=== PATIENT | female | born 1970 | race Caucasian/White ===

== ENCOUNTER 2016-09-08 00:24 | Emergency (ER) | payer OTHER, MEDICAID ==
[~2016-09-08] VITALS: Ht 165.1 cm; Wt 83.9 kg
[~2016-09-08 00:24] MED LIST: LEVO137T18 PO; LORA-258 PO; TRAM50TA92 PO; VENL150C2 PO; ZOLP12.52 PO
[2016-09-08 00:29] VITALS: BP 139/88; PULSE 58; RESP 18; TEMP 97.9; O2SAT 100
--- NOTE | 2016-09-08 00:51 | NUR ---
Patient to ER bed 1 to gown for evaluation. Side rails up. Report given to NATAN REYNA.
--- NOTE | 2016-09-08 01:01 | NUR ---
Patient to ER C/O severe 03/19 pelvic pain started yesterday morning, burning like non-radiating. Patient states that she had neck surgery Thursday and is taking pain meds but denies constipation. C/O nausea and vomiting for 1 day, "bitter, yello, bile like" AAOx4, unlabored breathing, no active vomiting at this time.
--- NOTE | 2016-09-08 01:16 | NUR ---
ER MD Gonzales at [facility] for evaluation
--- NOTE | 2016-09-08 01:20 | NUR ---
# 20 gauge angiocath placed to left ac. Use of asceptic technique. Opsite placed over site. Blood return noted. Flushed with 10 cc of normal saline. No evidence of infiltration noted. Patient tolerated well.
[2016-09-08 01:25] LABS: BASOPHILS # (AUTO) 0.3 K/uL (0.0-0.2); BASOPHILS % (AUTO) 2.5 % (0.0-2.0); EOSINOPHILS # (AUTO) 0.1 K/uL (0.0-0.4); EOSINOPHILS % (AUTO) 0.7 % (0.0-4.0); HEMATOCRIT 39.7 % (36-48); HEMOGLOBIN 13.3 g/dL (12.0-16.0); LYMPHOCYTES # (AUTO) 2.8 K/uL (1.0-5.5); LYMPHOCYTES % (AUTO) 20.8 % (20.5-51.5); MEAN CORPUSCULAR HEMOGLOBIN 29 pg (27-31); MEAN CORPUSCULAR HGB CONC 34 % (32-36); MEAN CORPUSCULAR VOLUME 87 fL (79.0-98.0); MONOCYTES % (AUTO) 7.4 % (1.7-9.3); NEUTROPHILS # (AUTO) 9.4 K/uL (1.8-7.7); NEUTROPHILS % (AUTO) 68.6 % (40.0-70.0); PLATELET COUNT (AUTO) 271 K/uL (130-430); RED BLOOD CELL COUNT(AUTO) 4.55 MIL/uL (4.2-6.2); RED CELL DISTRIBUTION WIDTH 13.4 % (9.0-15.0); WHITE BLOOD COUNT (AUTO) 13.6 K/uL (4.8-10.8)
[2016-09-08 01:36] LABS: CALCIUM 9.2 mg/dL (8.4-11.0); CREATININE 0.94 mg/dL (0.55-1.30); POTASSIUM 3.1 mmol/L (3.5-5.1)
[2016-09-08 01:41] LABS: ALBUMIN 3.7 g/dL (3.4-4.8); TOTAL BILIRUBIN 0.4 mg/dL (0.0-1.0); TOTAL PROTEIN, SERUM 7.7 g/dL (6.4-8.3)
[2016-09-08] MEDS ORDERED: LIDOCAINE VISCOUS 2%, 15 ML UDC MM ONE (01:45)
[2016-09-08] MEDS ORDERED: BELLADONNA ALKALOIDS/PHENOBARB 5 ML UDC PO ONE (01:45)
[2016-09-08] MEDS ORDERED: MAG-AL HYDROX/SIMETH 30 ML UDC PO ONE (01:45)
[2016-09-08] MEDS ORDERED: ONDANSETRON HCL 4 MG/2 ML VIAL IVP ONE (01:45)
--- NOTE | 2016-09-08 02:43 | NUR ---
MEDICATION GIVEN PER ORDERS TOLERATED WELL.
[2016-09-08] MEDS ORDERED: MORPHINE 4 MG/ML INJ. SYRINGE IVP ONE ×2 (02:45→03:30)
[2016-09-08] MEDS ORDERED: NACL 0.9% 1,000 ML IV ONE (03:30)
[2016-09-08] MEDS ORDERED: KCL 20 mEq in 100 mL (PREMIX) 100 ML IV ONE (04:30)
[2016-09-08 04:39] LABS: BILIRUBIN,URINE NEGATIVE (NEGATIVE); CLARITY/URINE SL HAZY (CLEAR); COLOR,URINE YELLOW (YELLOW); GLUCOSE,URINE NEGATIVE (NEGATIVE); KETONES,URINE NEGATIVE (NEGATIVE); LEUKOCYTE ESTERASE ,URINE NEGATIVE (NEGATIVE); NITRITE, URINE NEGATIVE (NEGATIVE); PH,URINE 8.5 (5.0-8.0); PROTEIN URINE NEGATIVE (NEGATIVE); UROBILINOGEN,URINE 0.2 (0.2-1.0)
--- NOTE | 2016-09-08 04:49 | NUR ---
OOB TO BR AMBULATING WELL. GAIT STEADY.
[2016-09-08 04:55] LABS: BLOOD, URINE TRACE (NEGATIVE)
--- NOTE | 2016-09-08 04:55 | NUR ---
Patient transported to radiology via GURNEY, accompanied by ARTS ADMINISTRATOR.
[2016-09-08] MEDS ORDERED: POTASSIUM CHLORIDE 20 MEQ TAB.PRT.SR PO ONE (05:00)
[2016-09-08] MEDS ORDERED: IOHEXOL 100 ML IV ONE (05:01)
[2016-09-08 05:13] LABS: BACTERIA,URINE FEW /HPF (None Seen); MUCUS,URINE None Seen /LPF (None Seen); URINE AMORPHOUS PHOSPHATES 2+ /HPF (None Seen); WBC,URINE 0-3 /HPF (0-3)
--- NOTE | 2016-09-08 05:20 | NUR ---
Returned from radiology, back to [facility].
--- NOTE | 2016-09-08 05:28 | NUR ---
ER at bedside examining patient.
[2016-09-08 06:24] VITALS: BP 140/81; PULSE 64; RESP 18; TEMP 98.2; O2SAT 98
--- NOTE | 2016-09-08 06:25 | NUR ---
Patient given written and verbal discharge instructions and verbalizes understanding. ER MD discussed with patient the results and treatment provided. Given copies of tests performed in ER. Patient in stable condition. ID arm band removed. IV catheter removed intact and dressing applied, no active bleeding. Rx of ZOFRAN,PROTONIX given. Patient educated on pain management and to follow up with PMD. Pain Scale 0/10. Opportunity for questions provided and answered.
== END 2016-09-08 06:24 | disposition home or self-care (01) ==
LOC: SED 00:24
DX: K29.70 Gastritis, unspecified, without bleeding (principal); D72.829 Elevated white blood cell count, unspecified; Z88.8 Allergy status to other drugs, medicaments and biological substances; Z90.49 Acquired absence of other specified parts of digestive tract
CPT/HCPCS: 36415; 74177; 80053; 81000; 81025; 83690; 84484; 85025; 93005; 96361; 96372; 96374; 96375; 99285; J2001; J2270; J2405; J7030; Q9967

== ENCOUNTER 2017-07-08 17:02 | Emergency (ER) | payer OTHER, MEDICAID ==
[~2017-07-08] VITALS: Ht 162.6 cm; Wt 76.7 kg
[2017-07-08 17:11] VITALS: BP_SYST 137
[2017-07-08 17:49] LABS: BASOPHILS % (AUTO) 0.7 % (0.0-2.0); EOSINOPHILS # (AUTO) 0.1 K/uL (0.0-0.4); EOSINOPHILS % (AUTO) 1.9 % (0.0-4.0); HEMOGLOBIN 13.1 g/dL (12.0-16.0); LYMPHOCYTES # (AUTO) 1.1 K/uL (1.0-5.5); LYMPHOCYTES % (AUTO) 17.5 % (20.5-51.5); MEAN CORPUSCULAR HEMOGLOBIN 29 pg (27-31); MEAN CORPUSCULAR HGB CONC 33 % (32-36); MEAN CORPUSCULAR VOLUME 88 fL (79.0-98.0); MONOCYTES # (AUTO) 0.3 K/uL (0.0-1.0); MONOCYTES % (AUTO) 4.7 % (1.7-9.3); NEUTROPHILS # (AUTO) 4.6 K/uL (1.8-7.7); NEUTROPHILS % (AUTO) 75.2 % (40.0-70.0); PLATELET COUNT (AUTO) 268 K/uL (130-430); RED BLOOD CELL COUNT(AUTO) 4.56 MIL/uL (4.2-6.2); RED CELL DISTRIBUTION WIDTH 12.8 % (9.0-15.0); WHITE BLOOD COUNT (AUTO) 6.1 K/uL (4.8-10.8)
[2017-07-08 17:52] LABS: CALCIUM 9.1 mg/dL (8.4-11.0); CREATININE 0.9 mg/dL (0.55-1.30)
[2017-07-08 17:56] LABS: ALBUMIN 3.9 g/dL (3.4-4.8); TOTAL BILIRUBIN 0.3 mg/dL (0.0-1.0)
[2017-07-08 18:52] VITALS: BP_SYST 127
== END 2017-07-08 18:52 | disposition home or self-care (01) ==
LOC: SED 17:02
DX: K59.00 Constipation, unspecified (principal); Z88.8 Allergy status to other drugs, medicaments and biological substances
CPT/HCPCS: 36415; 80053; 85025; 99285